=== PATIENT | male | born 1950 | race Caucasian/White ===

== ENCOUNTER 2019-12-17 07:09 | Day surgery (SDC) | payer OTHER, MEDICARE ==
[~2019-12-17] VITALS: Ht 200.7 cm; Wt 102.1 kg
--- NOTE | ~2019-12-17 | O ---
[facility] [place] [address] OPERATIVE REPORT Name: VAIBHAV SHETH Room #: 150-3 [facility] MMame.#: [id number] Admission: 12/17/19 Attend Phys: Jose Navarro Discharge: Date of : 46 Report #: [id number] THIS REPORT FOR: cc: FAM - Family physician unknown Zachary Rea MD,Jose Noble MD ~ CC: [facility] unknown Jose Rea DATE OF SERVICE: 12/17/2019 PREOPERATIVE DIAGNOSES: Left shoulder pain, rotator cuff tear, biceps tendinopathy, impingement syndrome. POSTOPERATIVE DIAGNOSES: Left shoulder pain, rotator cuff tear, medium size, impingement syndrome, complex labral tear, mild glenohumeral joint chondromalacia, subacromial bursitis. PROCEDURE PERFORMED: Left shoulder arthroscopy, rotator cuff repair, extensive debridement, subacromial decompression. SURGEON: Jose Hernandez MD ASSISTANTS: None. ANESTHESIA: General with preoperative ultrasound-guided interscalene block. FLUIDS: 900 mL of crystalloid. ESTIMATED BLOOD LOSS: Approximately 5 mL. DESCRIPTION OF PROCEDURE: After proper identification of the patient and operative site in preoperative holding area, the operative site was signed by myself. Prophylactic antibiotics were given. The patient elected to receive an ultrasound-guided block after reviewing the risks, benefits, alternatives and potential complications with Anesthesia. After a satisfactory block, the patient was brought back to the operative suite after induction of satisfactory general anesthesia, the patient's left shoulder was examined. It was stable throughout a full arc of motion comparable to the preoperative assessment. The patient was carefully positioned in the right lateral decubitus position. Lloyd bag and axillary roll were utilized to support the torso. The left shoulder was sterilely prepped and draped in usual manner and placed in 10 pounds of balanced arthroscopic suspension. Posterior portal was established, joint was inflated with an arthroscopic pump set at 40 mmHg. Anterior superior portal was created using a spinal needle for localization. Examination of the glenohumeral joint [address] [address] OPERATIVE REPORT Name: VAIBHAV SHETH Room #: [facility] [place] [address] M.R.#: [id number] Admission: 12/17/19 Attend Phys: Jose Navarro Discharge: Date of : 46 Report #: [id number] revealed some mild fraying of the anterior, superior and posterior superior quadrants of the labrum. This was carefully debrided with motorized shaver. The long head of biceps tendon was intact and stable within the groove. No groove pathology was noted. Its attachment to the superior labrum and glenoid was otherwise intact. No significant superior labral tearing was appreciated. Upper border of the subscapularis and the remainder of the subscapularis was intact. Lever pull maneuver was utilized to visualize this. There was evidence of a full thickness mildly retracted supraspinatus tear when viewed from the articular side. After debridement of the labrum, the arthroscope was then introduced into the subacromial space where very thickened subacromial bursa was encountered. This was resected for visualization purposes. Fraying on the undersurface of the coracoacromial arch was noted. The CA ligament was released, but not resected off the anterolateral acromion and prominence to the acromion was removed using a motorized bur. Approximately 3 mm of bone was resected here. The patient had a complex rotator cuff tear type pattern. This started anteriorly at the supraspinatus and the biceps tendon and extended posteriorly for approximately 18 mm towards the posterior aspect and infraspinatus. There was a flap tear that was still attached anteriorly that had been displaced anteriorly. It was able to be flipped back into position. There was significant rotator cuff tendonosis surrounding the tear with pronounced fraying noted. Frayed portion of the tendon was carefully debrided and this was debrided back to as healthy as a cuff tissue as possible. The tear was amenable to repair through a separate portal off the lateral border of the acromion. A triple-loaded 4.75 mm SwiveLock anchor was placed within the tuberosity that had been prepared with a sharp ring curette and motorized shaver. This was loaded with two #2 FiberWires and one FiberTape. FiberTape was passed in a horizontal mattress fashion as well as the FiberWires, which were placed slightly more anterior and then slightly more posterior. Sutures were tied first and then all suture pairs were brought lateral and secured with an additional SwiveLock anchor creating a double row construct. The repair was stable to probing. Again, the tendinosis around the tear site was noted, but the sutures still appeared to have good purchase and holding power within this region of the tendon. Subacromial space thoroughly irrigated with normal saline. Portals closed with simple nylon stitch. Sterile dressing was applied. The patient will be immobilized in a sling and abduction pillow for 6 weeks postoperatively. By: [id number] Jose Hernandez MD /bird
[~2019-12-17 07:09] MED LIST: ALLEGRA ALLERG180 MG PO; ALPHA LIPOIC A100 MG PO; ASA81BEC PO; ATORVASTATIN CA10 MG PO; AZELASTINE137 MCG/0. NASAL; CO Q-10100 M1 PO; DULOXETINE HCL60 MG PO; FIBER500 MG PO; FINASTERIDE5 MG PO; FLONASE 0.05%50 MCG NARES; IRBESARTAN150 MG PO; IRON 100 PLUS1 EACH PO; MELATONIN3 M2 PO; MUCINEX600 MG PO; MULTI VITAMIN1 EACH PO; NEXIUM 40 MG CA40 M1 PO; RESVERATROL50 MG PO; TRAMADOL 50 MG50 MG PO; VITAMIN B-12100 MC1 PO; [UNRECOGNIZED DRUG - CODE] PO; [UNRECOGNIZED DRUG - OTHER] PO
--- NOTE | 2019-12-17 08:08 | EKG ---
[facility] [place] [address] ELECTROCARDIOGRAM REPORT Name: VAIBHAV SHETH Room #: 150[address] [facility] M.R.#: [id number] Admission: 12/17/19 Attend Phys: Jose Navarro Discharge: Date of : 46 Report #: [id number] THIS REPORT FOR: cc: FAM - Family physician unknown Zachary Rea MD, Luis F. 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
== END 2019-12-17 12:10 | disposition home or self-care (01) ==
LOC: TBA 07:09 → OR 07:09 → TBA 07:11 → OR 12:10
DX: M25.512 Pain in left shoulder (principal); S43.402A Unspecified sprain of left shoulder joint, initial encounter; M75.102 Unspecified rotator cuff tear or rupture of left shoulder, not specified as traumatic; M75.42 Impingement syndrome of left shoulder; M75.52 Bursitis of left shoulder; I10 Essential (primary) hypertension; E78.5 Hyperlipidemia, unspecified; F32.9 Major depressive disorder, single episode, unspecified; Z87.442 Personal history of urinary calculi; Z98.890 Other specified postprocedural states; X58.XXXA Exposure to other specified factors, initial encounter; Y93.89 Activity, other specified; Y92.89 Other specified places as the place of occurrence of the external cause; Y99.8 Other external cause status
CPT/HCPCS: 29827; 29823; 29826; C1713; 50010; 50101; 50172; 50386; 50417; 50935; 51038; 51320; 51445; 51847; 52001; 53610; 54170; 56527; 57103; 57419; 57420; 62110; 62900; 70005

== ENCOUNTER → 2020-12-29 | Outpatient (CLI) | payer OTHER | LOC: ULTRA 14:38 | PROVIDERS: ATTEND Orthopaedic Surgery Sports Medicine | DX: M79.605 Pain in left leg (principal); M79.604 Pain in right leg ==